=== PATIENT | female | born 1940 | race Caucasian/White ===

== ENCOUNTER 2021-06-06 12:54 | Inpatient (IN) | payer OTHER ==
[~2021-06-06] VITALS: Ht 160 cm; Wt 101.9 kg
[2021-06-06 14:07] LABS: Basophils # (auto) 0.1 10 ^3/uL (0-0.2); Basophils % (auto) 0.6 % (0.0-2.0); Eosinophils # (auto) 0 10 ^3/uL (0-0.8); Hemoglobin 14.3 g/dL (12.2-16.2); Mean Corpuscular Hemoglobin 27.9 pg (28.0-32.0); Mean Corpuscular Hgb Conc. 32.5 g/dL (32.0-36.0); Mean Corpuscular Volume 85.6 fL (80.0-100.0); Monocytes # (auto) 1.2 10 ^3/uL (0-1.3); Monocytes % (auto) 13.2 % (0.0-12.0); Neutrophils # (auto) 6.7 10 ^3/uL (1.6-8.6); Neutrophils % (auto) 75.2 % (37.0-80.0); Nucleated Red Blood Cells % 0.1 %; Red Blood Cells 5.13 10^6/uL (4.0-5.20); Red Cell Distribution Width 14.6 % (11.8-14.3); White Blood Cell 8.9 10^3/uL (4.4-10.8)
[2021-06-06 14:40] LABS: Albumin 2.9 g/dL (3.4-5.0); Calcium 8.5 mg/dL (8.5-10.1); Magnesium 2.5 mg/dL (1.6-2.6); Potassium 3.3 mmol/L (3.5-5.1)
[2021-06-06 14:46] LABS: BUN/Creatinine Ratio 16.4; Total Protein 7.3 g/dL (6.4-8.2)
[2021-06-06] MEDS ORDERED: FUROSEMIDE 40 MG/4 ML VIAL IV ONE (16:45)
[2021-06-06] MEDS ORDERED: POTASSIUM CHL 20 Meq TABLET PO ONE (17:00)
[2021-06-06] MEDS ORDERED: methylPREDNISolone SOD SUCC 125 MG/2 ML VL IV ONE (17:00)
[2021-06-06] MEDS ORDERED: ACETAMINOPHEN 325 MG TAB PO PRN (17:15)
[2021-06-06] MEDS ORDERED: NITROGLYCERIN 0.4 MG SL TAB SL PRN (17:15)
[2021-06-06] MEDS ORDERED: MORPHINE SULFATE INJECTION 2 MG/ML SYRG IV PRN (17:15)
[2021-06-06 17:24] LABS: Urine Bacteria FEW /hpf (None Seen); Urine Blood TRACE /uL (Negative); Urine Specific Gravity 1.008 (1.001-1.035); Urine WBC 2 /hpf (0 - 5)
[2021-06-06] MEDS: CHOLECALCIFEROL (VITD3) 2,000 UNIT CAP/TAB PO SCH (18:05)
[2021-06-06] MEDS: DexAMETHasone SOD PHOS 10MG/1ML VIAL INJ IV SCH (18:06)
[2021-06-06] MEDS: MORPHINE SULFATE 4 MG/ML SYR/VIAL IV PRN ×2 (18:42→22:32)
[2021-06-06] MEDS: ONDANSETRON HCL 4 MG/2 ML VIAL IV PRN ×2 (18:42→22:32)
[2021-06-06] MEDS: ASCORBIC ACID 500 MG TAB PO SCH (20:44)
[2021-06-06] MEDS: ENOXAPARIN SOD 40 MG/0.4 ML SYRINGE SC SCH (20:44)
[2021-06-06] MEDS: HYDROcodone-ACET 5/325MG TAB PO PRN (20:45)
[2021-06-06] MEDS ORDERED: dilTIAZem 25 MG/5 ML VIAL IV ONE (22:45)
[2021-06-06 23:35] VITALS: BP 130/92
[2021-06-07 01:00] VITALS: BP 130/92
[2021-06-07] MEDS: HYDROcodone-ACET 5/325MG TAB PO PRN ×3 (03:36→21:49)
[2021-06-07 05:00] VITALS: BP 67/108
[2021-06-07 05:57] LABS: Basophils # (auto) 0 10 ^3/uL (0-0.2); Basophils % (auto) 0.3 % (0.0-2.0); Eosinophils # (auto) 0 10 ^3/uL (0-0.8); Hematocrit 42.4 % (36.0-46.0); Hemoglobin 13.9 g/dL (12.2-16.2); Lymphocytes # (auto) 0.6 10 ^3/uL (0.4-5.4); Lymphocytes % (auto) 8.6 % (10.0-50.0); Mean Corpuscular Hemoglobin 28.2 pg (28.0-32.0); Mean Corpuscular Hgb Conc. 32.8 g/dL (32.0-36.0); Mean Corpuscular Volume 85.9 fL (80.0-100.0); Monocytes # (auto) 0.3 10 ^3/uL (0-1.3); Monocytes % (auto) 3.9 % (0.0-12.0); Neutrophils # (auto) 6.2 10 ^3/uL (1.6-8.6); Neutrophils % (auto) 87.2 % (37.0-80.0); Nucleated Red Blood Cells % 0.1 %; Red Blood Cells 4.94 10^6/uL (4.0-5.20); Red Cell Distribution Width 14.6 % (11.8-14.3); White Blood Cell 7.1 10^3/uL (4.4-10.8)
[2021-06-07 06:00] VITALS: BP 128/91
[2021-06-07 06:06] LABS: Albumin 2.8 g/dL (3.4-5.0); BUN/Creatinine Ratio 22.1; Bilirubin, Total 0.7 mg/dL (0.2-1.0); Total Protein 6.7 g/dL (6.4-8.2)
[2021-06-07] MEDS: MULTIPLE VITAMIN TAB PO SCH (09:37)
[2021-06-07] MEDS: DexAMETHasone SOD PHOS 10MG/1ML VIAL INJ IV SCH (09:37)
[2021-06-07] MEDS: ZINC SULFATE 220mg CAP or TAB PO SCH (09:37)
[2021-06-07] MEDS: ENOXAPARIN SOD 40 MG/0.4 ML SYRINGE SC SCH (09:37)
[2021-06-07] MEDS: ASCORBIC ACID 500 MG TAB PO SCH ×2 (09:38→21:49)
[2021-06-07] MEDS: CHOLECALCIFEROL (VITD3) 2,000 UNIT CAP/TAB PO SCH (09:38)
[2021-06-07] MEDS ORDERED: AMLO-489 PO (10:00)
[2021-06-07] MEDS ORDERED: LISI-716 PO (10:00)
[2021-06-07] MEDS ORDERED: FURO40TA4 PO (10:00)
[2021-06-07] MEDS ORDERED: APIX5TAB PO (10:00)
[2021-06-07] MEDS ORDERED: HYDR-4798 (10:00)
[2021-06-07] MEDS ORDERED: FLUT50SP NAS (10:00)
[2021-06-07] MEDS ORDERED: ATEN100T PO (10:00)
[2021-06-07] MEDS ORDERED: ERGO1CAP12 PO (10:00)
[2021-06-07] MEDS: MORPHINE SULFATE 4 MG/ML SYR/VIAL IV PRN ×2 (10:08→19:05)
[2021-06-07] MEDS ORDERED: REMDESIVIR PER PHARMACY 0 ML IV SCH (16:30)
[2021-06-07 17:00] VITALS: BP 155/89
[2021-06-07] MEDS ORDERED: IOHEXOL 350 MG/ML 100ML IJ ONE (17:27)
[2021-06-07] MEDS ORDERED: REMDESIVIR 200 MG in NS 210ml LOADING DOSE ADULT IV ONE (18:00)
[2021-06-07] MEDS: APIXABAN 5 MG TAB PO SCH (21:49)
[2021-06-07] MEDS: LISINOPRIL 10 MG TAB PO SCH (21:50)
[2021-06-07] MEDS: BUDESONIDE (INHALATION) 180 MCG IH IN SCH (22:00)
[2021-06-07 22:25] VITALS: BP 127/82
[2021-06-08 05:25] VITALS: BP 158/84
[2021-06-08 06:44] LABS: Albumin 2.5 g/dL (3.4-5.0); Calcium 8.3 mg/dL (8.5-10.1)
[2021-06-08 06:47] LABS: BUN/Creatinine Ratio 29.7; Bilirubin, Total 0.5 mg/dL (0.2-1.0); Total Protein 6.4 g/dL (6.4-8.2)
[2021-06-08] MEDS: BUDESONIDE (INHALATION) 180 MCG IH IN SCH ×2 (07:56→23:15)
[2021-06-08 09:00] VITALS: BP 130/109
[2021-06-08] MEDS: ZINC SULFATE 220mg CAP or TAB PO SCH (10:22)
[2021-06-08] MEDS: ATENOLOL 50 MG TAB PO SCH (10:22)
[2021-06-08] MEDS: ASCORBIC ACID 500 MG TAB PO SCH ×2 (10:22→22:19)
[2021-06-08] MEDS: LISINOPRIL 10 MG TAB PO SCH ×2 (10:22→22:21)
[2021-06-08] MEDS: APIXABAN 5 MG TAB PO SCH ×2 (10:23→22:17)
[2021-06-08] MEDS: amLODIPine BESYLATE 5 MG TAB PO SCH (10:23)
[2021-06-08] MEDS: MULTIPLE VITAMIN TAB PO SCH (10:23)
[2021-06-08] MEDS: CHOLECALCIFEROL (VITD3) 2,000 UNIT CAP/TAB PO SCH (10:23)
[2021-06-08] MEDS: DexAMETHasone SOD PHOS 10MG/1ML VIAL INJ IV SCH (10:27)
[2021-06-08] MEDS: MORPHINE SULFATE 4 MG/ML SYR/VIAL IV PRN (10:46)
[2021-06-08] MEDS: ONDANSETRON HCL 4 MG/2 ML VIAL IV PRN (10:47)
[2021-06-08 12:53] VITALS: BP 122/71
[2021-06-08] MEDS: REMDESIVIR 100mg 100 MG in SODIUM CHL 0.9% 230 ML IV SCH (15:13)
[2021-06-08 17:02] VITALS: BP 153/82
[2021-06-08] MEDS ORDERED: DEXTROSE (50%) 50ML SYRG IV PRN ×2 (19:00→19:15)
[2021-06-08] MEDS ORDERED: InsuLIN REG 1unit/0.01ml Soln (100units/ml) SC ONE (19:15)
[2021-06-08 22:00] VITALS: BP 147/79
[2021-06-08] MEDS ORDERED: ACCU-CHEK COMFORT CURVE STRIP VI SCH (22:00)
[2021-06-08] MEDS ORDERED: InsuLIN REG 1unit/0.01ml Soln (100units/ml) SC SCH (22:00)
[2021-06-08] MEDS: InsuLIN REG 1unit/0.01ml Soln (100units/ml) SC SCH (22:16)
[2021-06-08] MEDS: ACCU-CHEK COMFORT CURVE STRIP VI SCH (22:17)
[2021-06-08] MEDS: HYDROcodone-ACET 5/325MG TAB PO PRN (22:27)
[2021-06-09 05:00] VITALS: BP 161/91
[2021-06-09] MEDS: HYDROcodone-ACET 5/325MG TAB PO PRN ×3 (05:19→21:01)
[2021-06-09] MEDS: ACCU-CHEK COMFORT CURVE STRIP VI SCH ×4 (06:33→21:39)
[2021-06-09] MEDS: InsuLIN REG 1unit/0.01ml Soln (100units/ml) SC SCH ×4 (06:36→21:47)
[2021-06-09 07:17] LABS: Calcium 8.3 mg/dL (8.5-10.1); Potassium 3.8 mmol/L (3.5-5.1)
[2021-06-09 07:24] LABS: Albumin 2.7 g/dL (3.4-5.0); BUN/Creatinine Ratio 26.3; Bilirubin, Total 0.4 mg/dL (0.2-1.0); Total Protein 6.5 g/dL (6.4-8.2)
[2021-06-09 08:00] VITALS: BP 158/86
[2021-06-09] MEDS: BUDESONIDE (INHALATION) 180 MCG IH IN SCH ×2 (08:40→20:08)
[2021-06-09 09:00] VITALS: BP 154/80
[2021-06-09] MEDS: DexAMETHasone SOD PHOS 10MG/1ML VIAL INJ IV SCH (09:33)
[2021-06-09] MEDS: ZINC SULFATE 220mg CAP or TAB PO SCH (09:34)
[2021-06-09] MEDS: APIXABAN 5 MG TAB PO SCH ×2 (09:34→21:37)
[2021-06-09] MEDS: amLODIPine BESYLATE 5 MG TAB PO SCH (09:35)
[2021-06-09] MEDS: MULTIPLE VITAMIN TAB PO SCH (09:35)
[2021-06-09] MEDS: CHOLECALCIFEROL (VITD3) 2,000 UNIT CAP/TAB PO SCH (09:36)
[2021-06-09] MEDS: ATENOLOL 50 MG TAB PO SCH (09:36)
[2021-06-09] MEDS: ASCORBIC ACID 500 MG TAB PO SCH ×2 (09:36→21:38)
[2021-06-09] MEDS: LISINOPRIL 10 MG TAB PO SCH ×2 (09:36→21:39)
[2021-06-09 12:54] VITALS: BP 133/113
[2021-06-09] MEDS: REMDESIVIR 100mg 100 MG in SODIUM CHL 0.9% 230 ML IV SCH (14:53)
[2021-06-09 17:10] VITALS: BP 149/96
[2021-06-09 22:00] VITALS: BP 138/66
[2021-06-09] MEDS ORDERED: INSULIN LANTUS (GLARGINE) 1 /0.01ml (100units/ml) SC SCH (22:00)
[2021-06-10] MEDS: HYDROcodone-ACET 5/325MG TAB PO PRN ×4 (01:14→21:37)
[2021-06-10 05:15] VITALS: BP 145/100
[2021-06-10] MEDS: ACCU-CHEK COMFORT CURVE STRIP VI SCH ×4 (06:23→21:38)
[2021-06-10] MEDS: InsuLIN REG 1unit/0.01ml Soln (100units/ml) SC SCH ×4 (06:26→21:38)
[2021-06-10] MEDS: BUDESONIDE (INHALATION) 180 MCG IH IN SCH ×2 (06:26→22:30)
[2021-06-10 08:00] VITALS: BP 161/90
[2021-06-10 08:22] LABS: Potassium 3.4 mmol/L (3.5-5.1)
[2021-06-10 08:31] LABS: Albumin 2.7 g/dL (3.4-5.0); Bilirubin, Total 0.7 mg/dL (0.2-1.0); Calcium 8.2 mg/dL (8.5-10.1); Total Protein 6.7 g/dL (6.4-8.2)
[2021-06-10] MEDS: ZINC SULFATE 220mg CAP or TAB PO SCH (09:12)
[2021-06-10] MEDS: DexAMETHasone SOD PHOS 10MG/1ML VIAL INJ IV SCH (09:12)
[2021-06-10] MEDS: amLODIPine BESYLATE 5 MG TAB PO SCH (09:13)
[2021-06-10] MEDS: ATENOLOL 50 MG TAB PO SCH (09:14)
[2021-06-10] MEDS: MULTIPLE VITAMIN TAB PO SCH (09:14)
[2021-06-10] MEDS: LISINOPRIL 10 MG TAB PO SCH ×2 (09:15→21:35)
[2021-06-10] MEDS: ASCORBIC ACID 500 MG TAB PO SCH ×2 (09:16→21:37)
[2021-06-10] MEDS: CHOLECALCIFEROL (VITD3) 2,000 UNIT CAP/TAB PO SCH (09:17)
[2021-06-10] MEDS: APIXABAN 5 MG TAB PO SCH ×2 (11:50→21:34)
[2021-06-10 12:00] VITALS: BP 138/91
[2021-06-10] MEDS: REMDESIVIR 100mg 100 MG in SODIUM CHL 0.9% 230 ML IV SCH (14:17)
[2021-06-10 16:00] VITALS: BP 139/78
[2021-06-10 20:00] VITALS: BP 144/80
[2021-06-10] MEDS: INSULIN LANTUS (GLARGINE) 1 /0.01ml (100units/ml) SC SCH (21:59)
[2021-06-10 22:00] VITALS: BP 144/80
[2021-06-11] MEDS: HYDROcodone-ACET 5/325MG TAB PO PRN ×3 (01:40→12:02)
[2021-06-11 05:00] VITALS: BP 152/94
[2021-06-11] MEDS: InsuLIN REG 1unit/0.01ml Soln (100units/ml) SC SCH ×4 (06:18→21:40)
[2021-06-11] MEDS: ACCU-CHEK COMFORT CURVE STRIP VI SCH ×4 (06:18→21:41)
[2021-06-11 07:25] LABS: Basophils # (auto) 0 10 ^3/uL (0-0.2); Basophils % (auto) 0.1 % (0.0-2.0); Eosinophils # (auto) 0 10 ^3/uL (0-0.8); Eosinophils % (auto) 0.1 % (0.0-7.0); Hematocrit 47.1 % (36.0-46.0); Hemoglobin 15.8 g/dL (12.2-16.2); Lymphocytes # (auto) 0.8 10 ^3/uL (0.4-5.4); Lymphocytes % (auto) 5.3 % (10.0-50.0); Mean Corpuscular Hemoglobin 28.3 pg (28.0-32.0); Mean Corpuscular Hgb Conc. 33.6 g/dL (32.0-36.0); Mean Corpuscular Volume 84.2 fL (80.0-100.0); Monocytes # (auto) 0.8 10 ^3/uL (0-1.3); Monocytes % (auto) 5.5 % (0.0-12.0); Neutrophils # (auto) 12.5 10 ^3/uL (1.6-8.6); Nucleated Red Blood Cells % 0.1 %; Red Blood Cells 5.59 10^6/uL (4.0-5.20); Red Cell Distribution Width 14.5 % (11.8-14.3); White Blood Cell 14.1 10^3/uL (4.4-10.8)
[2021-06-11 07:29] LABS: Potassium 3.4 mmol/L (3.5-5.1)
[2021-06-11 07:39] LABS: Albumin 2.7 g/dL (3.4-5.0); BUN/Creatinine Ratio 22.6; Calcium 8.2 mg/dL (8.5-10.1); Magnesium 2.8 mg/dL (1.6-2.6); Total Protein 6.6 g/dL (6.4-8.2)
[2021-06-11 08:00] VITALS: BP 159/99
[2021-06-11] MEDS: LISINOPRIL 10 MG TAB PO SCH ×2 (10:00→21:38)
[2021-06-11] MEDS: ASCORBIC ACID 500 MG TAB PO SCH ×2 (10:00→21:38)
[2021-06-11] MEDS: amLODIPine BESYLATE 5 MG TAB PO SCH (10:00)
[2021-06-11] MEDS: MULTIPLE VITAMIN TAB PO SCH (10:00)
[2021-06-11] MEDS: CHOLECALCIFEROL (VITD3) 2,000 UNIT CAP/TAB PO SCH (10:00)
[2021-06-11] MEDS: ATENOLOL 50 MG TAB PO SCH (10:00)
[2021-06-11] MEDS: APIXABAN 5 MG TAB PO SCH ×2 (10:00→21:37)
[2021-06-11] MEDS: ZINC SULFATE 220mg CAP or TAB PO SCH (11:51)
[2021-06-11] MEDS: DexAMETHasone SOD PHOS 10MG/1ML VIAL INJ IV SCH (11:51)
[2021-06-11 12:00] VITALS: BP 141/83
[2021-06-11] MEDS: REMDESIVIR 100mg 100 MG in SODIUM CHL 0.9% 230 ML IV SCH (16:15)
[2021-06-11 17:00] VITALS: BP 148/75
[2021-06-11 20:15] VITALS: BP 158/93
[2021-06-11] MEDS: INSULIN LANTUS (GLARGINE) 1 /0.01ml (100units/ml) SC SCH (21:40)
[2021-06-11] MEDS: BUDESONIDE (INHALATION) 180 MCG IH IN SCH (21:42)
[2021-06-11 22:00] VITALS: BP 158/93
[2021-06-12] VITALS (7 sets, daily range): BP systolic 149–161; BP diastolic 81–103
[2021-06-12] MEDS: HYDROcodone-ACET 5/325MG TAB PO PRN ×3 (05:24→23:53)
[2021-06-12] MEDS: BUDESONIDE (INHALATION) 180 MCG IH IN SCH ×2 (06:35→22:14)
[2021-06-12] MEDS: ACCU-CHEK COMFORT CURVE STRIP VI SCH ×4 (06:36→21:57)
[2021-06-12] MEDS: InsuLIN REG 1unit/0.01ml Soln (100units/ml) SC SCH ×4 (06:37→22:12)
[2021-06-12] MEDS: ZINC SULFATE 220mg CAP or TAB PO SCH (09:19)
[2021-06-12] MEDS: DexAMETHasone SOD PHOS 10MG/1ML VIAL INJ IV SCH (09:19)
[2021-06-12] MEDS: MULTIPLE VITAMIN TAB PO SCH (09:19)
[2021-06-12] MEDS: APIXABAN 5 MG TAB PO SCH ×2 (09:19→21:56)
[2021-06-12] MEDS: ASCORBIC ACID 500 MG TAB PO SCH ×2 (09:20→21:56)
[2021-06-12] MEDS: ATENOLOL 50 MG TAB PO SCH (09:20)
[2021-06-12] MEDS: amLODIPine BESYLATE 5 MG TAB PO SCH (09:20)
[2021-06-12] MEDS: CHOLECALCIFEROL (VITD3) 2,000 UNIT CAP/TAB PO SCH (09:21)
[2021-06-12] MEDS: LISINOPRIL 10 MG TAB PO SCH ×2 (09:21→21:57)
[2021-06-12] MEDS: INSULIN LANTUS (GLARGINE) 1 /0.01ml (100units/ml) SC SCH (22:13)
[2021-06-13 05:00] VITALS: BP 156/109
[2021-06-13] MEDS: HYDROcodone-ACET 5/325MG TAB PO PRN ×3 (05:41→23:32)
[2021-06-13] MEDS: BUDESONIDE (INHALATION) 180 MCG IH IN SCH ×2 (05:57→20:15)
[2021-06-13] MEDS: ACCU-CHEK COMFORT CURVE STRIP VI SCH ×4 (06:46→21:37)
[2021-06-13] MEDS: InsuLIN REG 1unit/0.01ml Soln (100units/ml) SC SCH ×4 (06:57→22:34)
[2021-06-13 09:00] VITALS: BP 132/101
[2021-06-13] MEDS: CHOLECALCIFEROL (VITD3) 2,000 UNIT CAP/TAB PO SCH (10:30)
[2021-06-13] MEDS: ZINC SULFATE 220mg CAP or TAB PO SCH (10:30)
[2021-06-13] MEDS: DexAMETHasone SOD PHOS 10MG/1ML VIAL INJ IV SCH (10:31)
[2021-06-13] MEDS: ASCORBIC ACID 500 MG TAB PO SCH ×2 (10:31→21:51)
[2021-06-13] MEDS: APIXABAN 5 MG TAB PO SCH ×2 (10:31→21:51)
[2021-06-13] MEDS: MULTIPLE VITAMIN TAB PO SCH (10:31)
[2021-06-13] MEDS: amLODIPine BESYLATE 5 MG TAB PO SCH (10:44)
[2021-06-13] MEDS: LISINOPRIL 10 MG TAB PO SCH ×2 (10:44→21:52)
[2021-06-13] MEDS: ATENOLOL 50 MG TAB PO SCH (10:45)
[2021-06-13 13:00] VITALS: BP 151/85
[2021-06-13 17:00] VITALS: BP 149/82
[2021-06-13 22:00] VITALS: BP 147/101
[2021-06-13] MEDS: INSULIN LANTUS (GLARGINE) 1 /0.01ml (100units/ml) SC SCH (22:35)
[2021-06-14 05:00] VITALS: BP 158/108
[2021-06-14] MEDS: BUDESONIDE (INHALATION) 180 MCG IH IN SCH ×2 (06:11→22:00)
[2021-06-14] MEDS: ACCU-CHEK COMFORT CURVE STRIP VI SCH ×4 (06:30→21:26)
[2021-06-14] MEDS: InsuLIN REG 1unit/0.01ml Soln (100units/ml) SC SCH ×4 (06:49→21:28)
[2021-06-14 09:00] VITALS: BP 150/93
[2021-06-14] MEDS: DexAMETHasone SOD PHOS 10MG/1ML VIAL INJ IV SCH (09:03)
[2021-06-14] MEDS: MULTIPLE VITAMIN TAB PO SCH (09:04)
[2021-06-14] MEDS: LISINOPRIL 10 MG TAB PO SCH ×2 (09:04→22:11)
[2021-06-14] MEDS: APIXABAN 5 MG TAB PO SCH ×2 (09:04→21:26)
[2021-06-14] MEDS: ASCORBIC ACID 500 MG TAB PO SCH ×2 (09:04→21:26)
[2021-06-14] MEDS: amLODIPine BESYLATE 5 MG TAB PO SCH (09:05)
[2021-06-14] MEDS: ZINC SULFATE 220mg CAP or TAB PO SCH (09:05)
[2021-06-14] MEDS: CHOLECALCIFEROL (VITD3) 2,000 UNIT CAP/TAB PO SCH (09:05)
[2021-06-14] MEDS: ATENOLOL 50 MG TAB PO SCH (09:05)
[2021-06-14 13:00] VITALS: BP 131/85
[2021-06-14] MEDS: HYDROcodone-ACET 5/325MG TAB PO PRN ×2 (16:58→21:30)
[2021-06-14 17:00] VITALS: BP 139/74
[2021-06-14] MEDS: INSULIN LANTUS (GLARGINE) 1 /0.01ml (100units/ml) SC SCH (21:29)
[2021-06-14 22:00] VITALS: BP 155/84
[2021-06-15 05:00] VITALS: BP 148/81
[2021-06-15] MEDS: ACCU-CHEK COMFORT CURVE STRIP VI SCH ×4 (06:01→21:38)
[2021-06-15] MEDS: InsuLIN REG 1unit/0.01ml Soln (100units/ml) SC SCH ×4 (06:03→21:39)
[2021-06-15] MEDS: BUDESONIDE (INHALATION) 180 MCG IH IN SCH ×2 (06:12→19:32)
[2021-06-15 08:30] VITALS: BP 160/86
[2021-06-15] MEDS: ATENOLOL 50 MG TAB PO SCH (09:45)
[2021-06-15] MEDS: LISINOPRIL 10 MG TAB PO SCH ×2 (09:45→21:51)
[2021-06-15] MEDS: DexAMETHasone SOD PHOS 10MG/1ML VIAL INJ IV SCH (09:45)
[2021-06-15] MEDS: ASCORBIC ACID 500 MG TAB PO SCH ×2 (09:45→21:50)
[2021-06-15] MEDS: ZINC SULFATE 220mg CAP or TAB PO SCH (09:45)
[2021-06-15] MEDS: MULTIPLE VITAMIN TAB PO SCH (09:46)
[2021-06-15] MEDS: APIXABAN 5 MG TAB PO SCH ×2 (09:46→21:50)
[2021-06-15] MEDS: amLODIPine BESYLATE 5 MG TAB PO SCH (09:46)
[2021-06-15] MEDS: CHOLECALCIFEROL (VITD3) 2,000 UNIT CAP/TAB PO SCH (09:46)
[2021-06-15 13:00] VITALS: BP 134/90
[2021-06-15 16:46] VITALS: BP 129/93
[2021-06-15 17:33] VITALS: BP 129/93
[2021-06-15] MEDS: INSULIN LANTUS (GLARGINE) 1 /0.01ml (100units/ml) SC SCH (21:50)
[2021-06-15 22:00] VITALS: BP 141/98
[2021-06-15] MEDS: HYDROcodone-ACET 5/325MG TAB PO PRN (22:08)
[2021-06-16 04:47] VITALS: BP 128/69
[2021-06-16] MEDS: HYDROcodone-ACET 5/325MG TAB PO PRN (06:00)
[2021-06-16] MEDS: ACCU-CHEK COMFORT CURVE STRIP VI SCH ×4 (06:00→22:46)
[2021-06-16] MEDS: InsuLIN REG 1unit/0.01ml Soln (100units/ml) SC SCH ×4 (06:01→23:26)
[2021-06-16 09:00] VITALS: BP 155/90
[2021-06-16] MEDS: BUDESONIDE (INHALATION) 180 MCG IH IN SCH ×2 (09:10→22:32)
[2021-06-16] MEDS: MULTIPLE VITAMIN TAB PO SCH (10:15)
[2021-06-16] MEDS: ZINC SULFATE 220mg CAP or TAB PO SCH (10:16)
[2021-06-16] MEDS: APIXABAN 5 MG TAB PO SCH ×2 (10:16→22:47)
[2021-06-16] MEDS: ATENOLOL 50 MG TAB PO SCH (10:16)
[2021-06-16] MEDS: amLODIPine BESYLATE 5 MG TAB PO SCH (10:16)
[2021-06-16] MEDS: DexAMETHasone SOD PHOS 10MG/1ML VIAL INJ IV SCH (10:17)
[2021-06-16] MEDS: ASCORBIC ACID 500 MG TAB PO SCH ×2 (10:19→22:47)
[2021-06-16] MEDS: CHOLECALCIFEROL (VITD3) 2,000 UNIT CAP/TAB PO SCH (10:19)
[2021-06-16] MEDS: LISINOPRIL 10 MG TAB PO SCH ×2 (10:20→22:47)
[2021-06-16 13:00] VITALS: BP 162/95
[2021-06-16] MEDS ORDERED: DOCUSATE SOD 100 MG CAP PO PRN (15:45)
[2021-06-16 17:00] VITALS: BP 154/99
[2021-06-16 19:27] LABS: Basophils # (auto) 0.1 10 ^3/uL (0-0.2); Basophils % (auto) 0.3 % (0.0-2.0); Eosinophils # (auto) 0 10 ^3/uL (0-0.8); Eosinophils % (auto) 0.1 % (0.0-7.0); Hematocrit 50.2 % (36.0-46.0); Hemoglobin 16.3 g/dL (12.2-16.2); Lymphocytes # (auto) 0.4 10 ^3/uL (0.4-5.4); Lymphocytes % (auto) 2.3 % (10.0-50.0); Mean Corpuscular Hemoglobin 27.9 pg (28.0-32.0); Mean Corpuscular Hgb Conc. 32.6 g/dL (32.0-36.0); Mean Corpuscular Volume 85.7 fL (80.0-100.0); Monocytes # (auto) 0.5 10 ^3/uL (0-1.3); Monocytes % (auto) 3.1 % (0.0-12.0); Neutrophils # (auto) 16.1 10 ^3/uL (1.6-8.6); Neutrophils % (auto) 94.2 % (37.0-80.0); Red Blood Cells 5.86 10^6/uL (4.0-5.20); Red Cell Distribution Width 14.6 % (11.8-14.3); White Blood Cell 17.1 10^3/uL (4.4-10.8)
[2021-06-16 19:38] LABS: Anion Gap 9 (5-15); BUN/Creatinine Ratio 36.2; Blood Urea Nitrogen 21 mg/dL (7-18); Calcium 8.4 mg/dL (8.5-10.1); Carbon Dioxide 29 mmol/L (21-32); Chloride 101 mmol/L (98-107); GFR African American 129 mL/min; GFR Non-African American 107 mL/min; Glucose 268 mg/dL (74-106); Sodium 139 mmol/L (136-145)
[2021-06-16 22:00] VITALS: BP 153/80
[2021-06-16] MEDS ORDERED: DOCUSATE SOD 100 MG CAP PO SCH (22:00)
[2021-06-16] MEDS: LACTULOSE 20Gm/30ML SOLN PO SCH (22:47)
[2021-06-16] MEDS: INSULIN LANTUS (GLARGINE) 1 /0.01ml (100units/ml) SC SCH (23:27)
[2021-06-17 05:00] VITALS: BP 162/99
[2021-06-17] MEDS: LACTULOSE 20Gm/30ML SOLN PO SCH (06:12)
[2021-06-17] MEDS: ACCU-CHEK COMFORT CURVE STRIP VI SCH (06:12)
[2021-06-17] MEDS: InsuLIN REG 1unit/0.01ml Soln (100units/ml) SC SCH (06:21)
[2021-06-17] MEDS: BUDESONIDE (INHALATION) 180 MCG IH IN SCH (06:27)
[2021-06-17 08:30] VITALS: BP 153/83
== END 2021-06-17 08:30 | DRG 177 ==
LOC: EDUNIT# 12:54 → ER 12:54 → EDBD 12:54 → TELE 17:12 → TELE-EAST 23:31
PROVIDERS: ADMIT Internal Medicine; ATTEND Internal Medicine
PROC: XW033E5 Introduction of Remdesivir Anti-infective into Peripheral Vein, Percutaneous Approach, New Technology Group 5 (ICD-10-PCS; principal; 2021-06-07)
DX: U07.1 COVID-19 (principal); J96.01 Acute respiratory failure with hypoxia; J12.82 Pneumonia due to coronavirus disease 2019; I50.23 Acute on chronic systolic (congestive) heart failure; I21.A1 Myocardial infarction type 2; I48.20 Chronic atrial fibrillation, unspecified; I82.431 Acute embolism and thrombosis of right popliteal vein; I27.21 Secondary pulmonary arterial hypertension; I25.10 Atherosclerotic heart disease of native coronary artery without angina pectoris; I35.0 Nonrheumatic aortic (valve) stenosis; I48.0 Paroxysmal atrial fibrillation; I11.0 Hypertensive heart disease with heart failure; M19.90 Unspecified osteoarthritis, unspecified site; G89.29 Other chronic pain; R00.0 Tachycardia, unspecified; E66.01 Morbid (severe) obesity due to excess calories; E87.6 Hypokalemia; E88.09 Other disorders of plasma-protein metabolism, not elsewhere classified; Z68.39 Body mass index [BMI] 39.0-39.9, adult; Z95.1 Presence of aortocoronary bypass graft; Z90.49 Acquired absence of other specified parts of digestive tract; Z79.4 Long term (current) use of insulin; E11.51 Type 2 diabetes mellitus with diabetic peripheral angiopathy without gangrene
CPT/HCPCS: 36415; 71045; 71275; 72100; 73502; 80048; 80053; 81001; 82962; 83036; 83735; 84484; 85025; 85379; 87426; 93005; 93306; 93970; 94640; 96374; 96375; 97110; 97116; 97163; 97530; 99291; G0378; J1100; J1815; J2405

== ENCOUNTER 2021-08-06 07:17 | Inpatient (IN) | payer OTHER, MEDICAID ==
[~2021-08-06] VITALS: Ht 157.5 cm; Wt 105.8 kg
[~2021-08-06 07:17] MED LIST: AMLO-489 PO; APIX5TAB PO; ATEN100T PO; ERGO1CAP12 PO; FLUT50SP NAS; FURO40TA4 PO; HYDR-4798; LISI-716 PO
[2021-08-06 08:37] LABS: Basophils # (auto) 0.1 10 ^3/uL (0-0.2); Basophils % (auto) 0.9 % (0.0-2.0); Eosinophils # (auto) 0.1 10 ^3/uL (0-0.8); Eosinophils % (auto) 1.1 % (0.0-7.0); Hematocrit 41.1 % (36.0-46.0); Hemoglobin 13.6 g/dL (12.2-16.2); Lymphocytes # (auto) 1.2 10 ^3/uL (0.4-5.4); Lymphocytes % (auto) 10.3 % (10.0-50.0); Mean Corpuscular Hemoglobin 28.9 pg (28.0-32.0); Mean Corpuscular Hgb Conc. 33.1 g/dL (32.0-36.0); Mean Corpuscular Volume 87.5 fL (80.0-100.0); Monocytes % (auto) 8.4 % (0.0-12.0); Neutrophils # (auto) 9.2 10 ^3/uL (1.6-8.6); Neutrophils % (auto) 79.3 % (37.0-80.0); Nucleated Red Blood Cells % 0.3 %; White Blood Cell 11.6 10^3/uL (4.4-10.8)
[2021-08-06 09:21] LABS: BUN/Creatinine Ratio 10.7; Bilirubin, Total 1.1 mg/dL (0.2-1.0); Calcium 8.9 mg/dL (8.5-10.1)
[2021-08-06 09:22] LABS: Albumin 2.9 g/dL (3.4-5.0)
[2021-08-06 10:28] LABS: Urine Bacteria NONE SEEN /hpf (None Seen); Urine Blood Negative /uL (Negative); Urine Hyaline Cast FEW /lpf (0 - 2); Urine Mucus FEW (None Seen); Urine Specific Gravity 1.008 (1.001-1.035); Urine WBC 1 /hpf (0 - 5)
[2021-08-06] MEDS ORDERED: CLINDAMYCIN 600MG IV 50 ML IV ONE (10:30)
[2021-08-06] MEDS: ONDANSETRON HCL 4 MG/2 ML VIAL IV ONE ×2 (10:30→10:36)
[2021-08-06] MEDS: MORPHINE SULFATE 4 MG/ML SYR/VIAL IV ONE (10:30)
[2021-08-06] MEDS: cefTRIAXone 1GM/50ML D5W 50 ML IV ONE ×4 (10:59→12:18)
[2021-08-06] MEDS ORDERED: IBUPROFEN 800 MG TAB PO ONE (12:30)
[2021-08-06] MEDS ORDERED: ACETAMINOPHEN 325 MG TAB PO PRN (16:00)
[2021-08-06] MEDS ORDERED: MORPHINE SULFATE INJECTION 2 MG/ML SYRG IV PRN ×2 (16:00)
[2021-08-06] MEDS ORDERED: NITROGLYCERIN 0.4 MG SL TAB SL PRN (16:00)
[2021-08-06] MEDS: SODIUM CHLORIDE 0.9% 1,000 ML IV SCH (16:38)
[2021-08-06] MEDS ORDERED: NITR100C6 PO (18:03)
[2021-08-06] MEDS ORDERED: POTA1TAB61 PO (18:03)
[2021-08-06] MEDS ORDERED: INSU100I61 (18:03)
[2021-08-06 20:19] VITALS: BP 122/66
[2021-08-06 22:00] VITALS: BP 106/60
[2021-08-06] MEDS: HYDROcodone-ACET 5/325MG TAB PO PRN (22:55)
[2021-08-07 05:15] VITALS: BP 110/62
[2021-08-07 05:45] LABS: Basophils # (auto) 0.1 10 ^3/uL (0-0.2); Basophils % (auto) 0.7 % (0.0-2.0); Eosinophils # (auto) 0.2 10 ^3/uL (0-0.8); Eosinophils % (auto) 2.4 % (0.0-7.0); Hematocrit 37.1 % (36.0-46.0); Lymphocytes # (auto) 1.1 10 ^3/uL (0.4-5.4); Lymphocytes % (auto) 14.2 % (10.0-50.0); Mean Corpuscular Hemoglobin 28.2 pg (28.0-32.0); Mean Corpuscular Hgb Conc. 32.2 g/dL (32.0-36.0); Mean Corpuscular Volume 87.6 fL (80.0-100.0); Monocytes # (auto) 0.7 10 ^3/uL (0-1.3); Monocytes % (auto) 8.6 % (0.0-12.0); Neutrophils # (auto) 5.9 10 ^3/uL (1.6-8.6); Neutrophils % (auto) 74.1 % (37.0-80.0); Nucleated Red Blood Cells % 0.2 %; Red Blood Cells 4.24 10^6/uL (4.0-5.20)
[2021-08-07] MEDS ORDERED: CLINDAMYCIN 300MG IV 50 ML IV SCH (06:00)
[2021-08-07 06:12] LABS: Albumin 2.3 g/dL (3.4-5.0); BUN/Creatinine Ratio 15.6; Calcium 8.3 mg/dL (8.5-10.1)
[2021-08-07 06:16] LABS: Bilirubin, Total 0.7 mg/dL (0.2-1.0); Total Protein 5.5 g/dL (6.4-8.2)
[2021-08-07 06:40] LABS: Potassium 2.9 mmol/L (3.5-5.1)
[2021-08-07] MEDS: SODIUM CHLORIDE 0.9% 1,000 ML IV SCH (08:40)
[2021-08-07 09:00] VITALS: BP 133/81
[2021-08-07] MEDS: POTASSIUM CHL 10MEQ/50ML 50 ML IV SCH ×4 (09:27→17:34)
[2021-08-07] MEDS: amLODIPine BESYLATE 5 MG TAB PO SCH (09:28)
[2021-08-07] MEDS: APIXABAN 5 MG TAB PO SCH ×2 (09:28→22:24)
[2021-08-07] MEDS: ATENOLOL 50 MG TAB PO SCH (09:29)
[2021-08-07] MEDS: LISINOPRIL 20 MG TAB PO SCH (09:29)
[2021-08-07] MEDS: HYDROcodone-ACET 5/325MG TAB PO PRN ×3 (09:30→23:38)
[2021-08-07] MEDS: FUROSEMIDE 40 MG/4 ML VIAL IV SCH (10:00)
[2021-08-07] MEDS ORDERED: ENOXAPARIN SOD 40 MG/0.4 ML SYRINGE SC SCH (10:00)
[2021-08-07] MEDS ORDERED: ERGOCALCIFEROL 50,000 UNIT(1.25MG) CAP PO SCH (10:00)
[2021-08-07] MEDS ORDERED: POTASSIUM CHL 10MEQ/50ML 50 ML IV ONE (16:20)
[2021-08-07 17:00] VITALS: BP_SYST 114; BP_SYST 125; BP_DIAS 65; BP_DIAS 80
[2021-08-07 20:00] VITALS: BP 125/73
[2021-08-08] VITALS (7 sets, daily range): BP systolic 117–139; BP diastolic 63–92
[2021-08-08] MEDS: SODIUM CHLORIDE 0.9% 1,000 ML IV SCH ×2 (03:21→21:52)
[2021-08-08] MEDS: FUROSEMIDE 40 MG/4 ML VIAL IV SCH (09:40)
[2021-08-08] MEDS: APIXABAN 5 MG TAB PO SCH ×2 (09:40→21:52)
[2021-08-08] MEDS: amLODIPine BESYLATE 5 MG TAB PO SCH (09:41)
[2021-08-08] MEDS: ATENOLOL 50 MG TAB PO SCH (09:41)
[2021-08-08] MEDS: LISINOPRIL 20 MG TAB PO SCH (09:42)
[2021-08-08] MEDS: CLOTRIMAZOLE 1 % CREAM 15GM TOP SCH ×2 (10:00→21:53)
[2021-08-08] MEDS: HYDROcodone-ACET 5/325MG TAB PO PRN ×2 (12:36→21:53)
[2021-08-09] MEDS: HYDROcodone-ACET 5/325MG TAB PO PRN ×3 (02:31→20:10)
[2021-08-09 04:42] VITALS: BP 131/53
[2021-08-09 09:11] VITALS: BP 139/86
[2021-08-09] MEDS: FUROSEMIDE 40 MG/4 ML VIAL IV SCH (09:44)
[2021-08-09] MEDS: APIXABAN 5 MG TAB PO SCH ×2 (09:44→21:33)
[2021-08-09] MEDS: ATENOLOL 50 MG TAB PO SCH (09:45)
[2021-08-09] MEDS: LISINOPRIL 20 MG TAB PO SCH (09:45)
[2021-08-09] MEDS: amLODIPine BESYLATE 5 MG TAB PO SCH (09:45)
[2021-08-09] MEDS: CLOTRIMAZOLE 1 % CREAM 15GM TOP SCH ×2 (09:46→21:33)
[2021-08-09] MEDS: SODIUM CHLORIDE 0.9% 1,000 ML IV SCH (12:39)
[2021-08-09 12:51] VITALS: BP 135/78
[2021-08-09 17:00] VITALS: BP 127/77
[2021-08-09 21:50] VITALS: BP 121/83
[2021-08-10 04:42] VITALS: BP 142/86
[2021-08-10] MEDS: HYDROcodone-ACET 5/325MG TAB PO PRN ×3 (04:58→21:34)
[2021-08-10] MEDS: SODIUM CHLORIDE 0.9% 1,000 ML IV SCH ×2 (05:36→20:00)
[2021-08-10] MEDS ORDERED: PENICILLOYL POLYLYSINE 0.25 ML INJ SCRATCHTES ONE (07:45)
[2021-08-10] MEDS ORDERED: PENICILLOYL POLYLYSINE 0.25 ML INJ ID ONE ×2 (07:45)
[2021-08-10 09:00] VITALS: BP 116/71
[2021-08-10] MEDS: LISINOPRIL 20 MG TAB PO SCH (10:00)
[2021-08-10] MEDS: FUROSEMIDE 40 MG/4 ML VIAL IV SCH (11:10)
[2021-08-10] MEDS: APIXABAN 5 MG TAB PO SCH ×2 (11:10→21:35)
[2021-08-10] MEDS: amLODIPine BESYLATE 5 MG TAB PO SCH (11:11)
[2021-08-10] MEDS: CLOTRIMAZOLE 1 % CREAM 15GM TOP SCH ×2 (11:12→21:35)
[2021-08-10] MEDS: ATENOLOL 50 MG TAB PO SCH (11:12)
[2021-08-10 13:00] VITALS: BP 100/79
[2021-08-10] MEDS ORDERED: INSUINJ37 SC ×2 (14:27)
[2021-08-10] MEDS ORDERED: ATEN100T PO ×2 (14:27)
[2021-08-10] MEDS ORDERED: CHOL1TAB30 PO ×2 (14:27)
[2021-08-10] MEDS ORDERED: INSU100I49 SC ×2 (14:27)
[2021-08-10] MEDS ORDERED: SODIUM CHLOR 0.9% PF (SALINE LOCK) 10ML VIAL/SYR ID ONE (15:00)
[2021-08-10] MEDS ORDERED: PENICILLIN G POTASSIUM 1,000 UNITS in SODIUM CHL 0.9% 0.1 ML SCRATCHTES ONE (15:00)
[2021-08-10] MEDS ORDERED: SODIUM CHLOR 0.9% PF (SALINE LOCK) 10ML VIAL/SYR SCRATCHTES ONE (15:00)
[2021-08-10] MEDS ORDERED: HISTAMINE PHOS 1mg/ml 5ML SCRATCH TEST SCRATCHTES ONE (15:00)
[2021-08-10] MEDS ORDERED: PENICILLIN G POTASSIUM 1,000 UNITS in SODIUM CHL 0.9% 0.1 ML ID ONE (15:00)
[2021-08-10 17:24] VITALS: BP 128/66
[2021-08-10 20:15] LABS: Basophils # (auto) 0.1 10 ^3/uL (0-0.2); Basophils % (auto) 0.7 % (0.0-2.0); Eosinophils # (auto) 0.2 10 ^3/uL (0-0.8); Hematocrit 37.5 % (36.0-46.0); Hemoglobin 12.1 g/dL (12.2-16.2); Lymphocytes # (auto) 1.2 10 ^3/uL (0.4-5.4); Lymphocytes % (auto) 16.5 % (10.0-50.0); Mean Corpuscular Hemoglobin 28.7 pg (28.0-32.0); Mean Corpuscular Hgb Conc. 32.4 g/dL (32.0-36.0); Mean Corpuscular Volume 88.8 fL (80.0-100.0); Monocytes # (auto) 0.6 10 ^3/uL (0-1.3); Monocytes % (auto) 8.4 % (0.0-12.0); Neutrophils # (auto) 5.4 10 ^3/uL (1.6-8.6); Neutrophils % (auto) 72.4 % (37.0-80.0); Nucleated Red Blood Cells % 0.1 %; Red Blood Cells 4.22 10^6/uL (4.0-5.20); Red Cell Distribution Width 15.8 % (11.8-14.3); White Blood Cell 7.4 10^3/uL (4.4-10.8)
[2021-08-10 20:41] LABS: Calcium 8.6 mg/dL (8.5-10.1); Potassium 3.2 mmol/L (3.5-5.1)
[2021-08-10 22:00] VITALS: BP 110/68
[2021-08-11 05:00] VITALS: BP 157/97
[2021-08-11 09:00] VITALS: BP 177/80
[2021-08-11] MEDS: FUROSEMIDE 40 MG/4 ML VIAL IV SCH (09:57)
[2021-08-11] MEDS: APIXABAN 5 MG TAB PO SCH (09:57)
[2021-08-11] MEDS: amLODIPine BESYLATE 5 MG TAB PO SCH (09:57)
[2021-08-11] MEDS: ATENOLOL 50 MG TAB PO SCH (09:58)
[2021-08-11] MEDS: LISINOPRIL 20 MG TAB PO SCH (09:58)
[2021-08-11] MEDS: CLOTRIMAZOLE 1 % CREAM 15GM TOP SCH (09:59)
[2021-08-11] MEDS: HYDROcodone-ACET 5/325MG TAB PO PRN ×2 (11:07→18:44)
[2021-08-11 15:05] VITALS: BP 130/80
[2021-08-11] MEDS ORDERED: MUPIROCIN 2% OINT 15gm or 22gm TOP SCH (16:00)
[2021-08-11 18:03] VITALS: BP 177/80
== END 2021-08-11 19:30 | disposition home health service (06) | DRG 603 ==
LOC: ER 07:17 → TELE 15:49 → TELE-WESTW 17:26
PROVIDERS: ADMIT Internal Medicine; ATTEND Internal Medicine
DX: L03.115 Cellulitis of right lower limb (principal); Z68.41 Body mass index [BMI] 40.0-44.9, adult; N17.9 Acute kidney failure, unspecified; I87.2 Venous insufficiency (chronic) (peripheral); E87.6 Hypokalemia; E11.65 Type 2 diabetes mellitus with hyperglycemia; E88.09 Other disorders of plasma-protein metabolism, not elsewhere classified; E55.9 Vitamin D deficiency, unspecified; E66.01 Morbid (severe) obesity due to excess calories; I10 Essential (primary) hypertension; I25.10 Atherosclerotic heart disease of native coronary artery without angina pectoris; Z20.822 Contact with and (suspected) exposure to COVID-19; R32 Unspecified urinary incontinence; Z88.8 Allergy status to other drugs, medicaments and biological substances; Z88.2 Allergy status to sulfonamides; Z88.0 Allergy status to penicillin; Z79.01 Long term (current) use of anticoagulants; Z79.899 Other long term (current) drug therapy; Z82.3 Family history of stroke; Z82.49 Family history of ischemic heart disease and other diseases of the circulatory system; Z86.718 Personal history of other venous thrombosis and embolism; Z79.4 Long term (current) use of insulin
CPT/HCPCS: 36415; 51702; 71045; 74176; 80048; 80053; 81001; 82962; 83605; 84132; 85025; 87040; 87426; 93970; 96365; 97110; 97163; G0378; J0696; J2405; J3490

== ENCOUNTER 2021-08-20 03:23 | Emergency (ER) | payer OTHER, MEDICAID ==
[~2021-08-20] VITALS: Ht 157.5 cm; Wt 102.1 kg
[~2021-08-20 03:23] MED LIST changes: +CHOL1TAB30 PO; +INSU100I49 SC; +INSU100I61; +INSUINJ37 SC; +NITR100C6 PO; +POTA1TAB61 PO
[2021-08-20 04:25] LABS: Basophils # (auto) 0.1 10 ^3/uL (0-0.2); Basophils % (auto) 0.6 % (0.0-2.0); Eosinophils # (auto) 0.4 10 ^3/uL (0-0.8); Eosinophils % (auto) 3.1 % (0.0-7.0); Hematocrit 42.6 % (36.0-46.0); Hemoglobin 14.2 g/dL (12.2-16.2); Lymphocytes # (auto) 1.1 10 ^3/uL (0.4-5.4); Lymphocytes % (auto) 8.8 % (10.0-50.0); Mean Corpuscular Hgb Conc. 33.2 g/dL (32.0-36.0); Mean Corpuscular Volume 87.4 fL (80.0-100.0); Monocytes # (auto) 1.1 10 ^3/uL (0-1.3); Monocytes % (auto) 8.6 % (0.0-12.0); Neutrophils # (auto) 9.6 10 ^3/uL (1.6-8.6); Neutrophils % (auto) 78.9 % (37.0-80.0); Potassium 3.5 mmol/L (3.5-5.1); Red Blood Cells 4.88 10^6/uL (4.0-5.20); Red Cell Distribution Width 15.5 % (11.8-14.3); White Blood Cell 12.2 10^3/uL (4.4-10.8)
[2021-08-20 04:29] LABS: BUN/Creatinine Ratio 18.5; Calcium 9.1 mg/dL (8.5-10.1)
[2021-08-20 04:34] LABS: Bilirubin, Total 0.8 mg/dL (0.2-1.0); Total Protein 7.5 g/dL (6.4-8.2)
[2021-08-20] MEDS ORDERED: ONDANSETRON HCL 4 MG/2 ML VIAL IV ONE (04:45)
[2021-08-20] MEDS ORDERED: HYDROmorphone HCL 2 MG/ML VL IV ONE (04:45)
[2021-08-20] MEDS ORDERED: MORPHINE SULFATE 4 MG/ML SYR/VIAL IV ONE (05:00)
[2021-08-20 07:43] VITALS: BP 130/71
== END 2021-08-20 08:49 | disposition home or self-care (01) ==
LOC: ER 03:23 → EDBD 03:23 → ER 08:48
DX: R55 Syncope and collapse (principal); L03.115 Cellulitis of right lower limb; R60.0 Localized edema; E11.9 Type 2 diabetes mellitus without complications; I10 Essential (primary) hypertension; Z88.0 Allergy status to penicillin; Z88.1 Allergy status to other antibiotic agents; Z88.6 Allergy status to analgesic agent; Z90.49 Acquired absence of other specified parts of digestive tract
CPT/HCPCS: 36415; 70450; 71250; 72125; 73562; 74176; 80053; 84484; 85025; 93005; 96374; 96375; 99285; J1170; J2270; J2405

== ENCOUNTER 2021-09-28 01:27 | Emergency (ER) | payer OTHER, MEDICAID ==
[~2021-09-28] VITALS: Ht 157.5 cm; Wt 127.0 kg
[~2021-09-28 01:27] MED LIST changes: -AMLO-489 PO; -ERGO1CAP12 PO; -FLUT50SP NAS; -FURO40TA4 PO; -HYDR-4798; -INSU100I61; -LISI-716 PO; -NITR100C6 PO; -POTA1TAB61 PO
[2021-09-28 02:45] LABS: Basophils # (auto) 0.1 10 ^3/uL (0-0.2); Basophils % (auto) 0.8 % (0.0-2.0); Eosinophils # (auto) 0.1 10 ^3/uL (0-0.8); Eosinophils % (auto) 0.8 % (0.0-7.0); Hemoglobin 13.3 g/dL (12.2-16.2); Lymphocytes # (auto) 1.4 10 ^3/uL (0.4-5.4); Lymphocytes % (auto) 15.3 % (10.0-50.0); Mean Corpuscular Hemoglobin 29.3 pg (28.0-32.0); Mean Corpuscular Hgb Conc. 33.1 g/dL (32.0-36.0); Mean Corpuscular Volume 88.3 fL (80.0-100.0); Monocytes # (auto) 0.9 10 ^3/uL (0-1.3); Monocytes % (auto) 9.4 % (0.0-12.0); Neutrophils # (auto) 6.9 10 ^3/uL (1.6-8.6); Neutrophils % (auto) 73.7 % (37.0-80.0); Red Blood Cells 4.53 10^6/uL (4.0-5.20); Red Cell Distribution Width 14.9 % (11.8-14.3); White Blood Cell 9.3 10^3/uL (4.4-10.8)
[2021-09-28 02:51] LABS: Albumin 3.2 g/dL (3.4-5.0); BUN/Creatinine Ratio 15.2; Calcium 9.1 mg/dL (8.5-10.1); Potassium 3.5 mmol/L (3.5-5.1)
[2021-09-28 02:54] LABS: Bilirubin, Total 0.5 mg/dL (0.2-1.0); Total Protein 7.2 g/dL (6.4-8.2)
[2021-09-28] MEDS ORDERED: CEPH-509 PO (07:49)
[2021-09-28] MEDS ORDERED: cloNIDine HCL 0.1 MG TAB PO ONE (08:00)
[2021-09-28] MEDS ORDERED: FUROSEMIDE 20 MG/2 ML VIAL IV ONE (08:00)
[2021-09-28 10:11] VITALS: BP 156/82
== END 2021-09-28 10:24 | disposition home or self-care (01) ==
LOC: EDBD 01:27 → ER 01:27
DX: I11.0 Hypertensive heart disease with heart failure (principal); I50.9 Heart failure, unspecified; L03.115 Cellulitis of right lower limb; L03.116 Cellulitis of left lower limb; E46 Unspecified protein-calorie malnutrition; E11.9 Type 2 diabetes mellitus without complications; Z68.43 Body mass index [BMI] 50.0-59.9, adult; Z90.49 Acquired absence of other specified parts of digestive tract
CPT/HCPCS: 36415; 71045; 80053; 83880; 84484; 85025; 93005

== ENCOUNTER 2022-01-22 19:04 | Emergency (ER) | payer OTHER, MEDICAID ==
[~2022-01-22] VITALS: Ht 160 cm; Wt 90.0 kg
[~2022-01-22 19:04] MED LIST changes: +CEPH-509 PO
[2022-01-22 20:42] LABS: Basophils # (auto) 0.1 10 ^3/uL (0-0.2); Eosinophils # (auto) 0.1 10 ^3/uL (0-0.8); Eosinophils % (auto) 0.8 % (0.0-7.0); Lymphocytes # (auto) 1.4 10 ^3/uL (0.4-5.4); White Blood Cell 11.5 10^3/uL (4.4-10.8)
[2022-01-22 20:43] LABS: Basophils % (auto) 0.8 % (0.0-2.0); Hematocrit 43.5 % (36.0-46.0); Hemoglobin 13.7 g/dL (12.2-16.2); Lymphocytes % (auto) 12.1 % (10.0-50.0); Mean Corpuscular Hgb Conc. 31.5 g/dL (32.0-36.0); Mean Corpuscular Volume 85.7 fL (80.0-100.0); Monocytes % (auto) 8.4 % (0.0-12.0); Neutrophils # (auto) 8.9 10 ^3/uL (1.6-8.6); Neutrophils % (auto) 77.9 % (37.0-80.0); Nucleated Red Blood Cells % 0.1 %; Red Blood Cells 5.08 10^6/uL (4.0-5.20); Red Cell Distribution Width 15.4 % (11.8-14.3)
[2022-01-22 21:18] LABS: Albumin 3.1 g/dL (3.4-5.0); Calcium 9.1 mg/dL (8.5-10.1); Potassium 3.5 mmol/L (3.5-5.1)
[2022-01-22 21:21] LABS: BUN/Creatinine Ratio 10.6; Bilirubin, Total 0.9 mg/dL (0.2-1.0); Total Protein 7.5 g/dL (6.4-8.2)
[2022-01-22 22:43] LABS: Urine Bacteria FEW /hpf (None Seen); Urine Blood TRACE /uL (Negative); Urine Specific Gravity 1.005 (1.001-1.035); Urine WBC 23 /hpf (0 - 5)
[2022-01-22] MEDS ORDERED: ONDANSETRON HCL 4 MG/2 ML VIAL IV ONE (23:30)
[2022-01-22] MEDS ORDERED: HYDROmorphone HCL 2 MG/ML VL/or syr IV ONE (23:30)
[2022-01-23] MEDS ORDERED: cefTRIAXone 1GM/50ML D5W 50 ML IV ONE (03:45)
[2022-01-23] MEDS ORDERED: NITR-87 PO (04:29)
[2022-01-23] MEDS ORDERED: NITROFURANTOIN 100 mg CAP PO ONE (04:30)
[2022-01-23 07:28] VITALS: BP 108/65
== END 2022-01-23 07:43 | disposition home or self-care (01) ==
LOC: EDBD 19:04 → ER 19:04
DX: N39.0 Urinary tract infection, site not specified (principal); R60.0 Localized edema; I10 Essential (primary) hypertension; I48.91 Unspecified atrial fibrillation; E11.9 Type 2 diabetes mellitus without complications; Z90.49 Acquired absence of other specified parts of digestive tract; Z95.1 Presence of aortocoronary bypass graft; Z79.4 Long term (current) use of insulin; Z79.899 Other long term (current) drug therapy; Z88.6 Allergy status to analgesic agent; Z88.0 Allergy status to penicillin; Z88.2 Allergy status to sulfonamides; Z88.8 Allergy status to other drugs, medicaments and biological substances; Z88.1 Allergy status to other antibiotic agents
CPT/HCPCS: 36415; 71045; 80053; 81001; 83880; 84484; 85025; 93005; 96374; 96375; 99285; J1170; J2405

== ENCOUNTER 2022-03-26 22:33 | Emergency (ER) | payer OTHER, MEDICAID ==
[~2022-03-26] VITALS: Ht 167.6 cm; Wt 110.0 kg
[~2022-03-26 22:33] MED LIST changes: +NITR-87 PO
[2022-03-26 23:44] LABS: Basophils # (auto) 0 10 ^3/uL (0-0.2); Basophils % (auto) 0.4 % (0.0-2.0); Eosinophils # (auto) 0.2 10 ^3/uL (0-0.8); Eosinophils % (auto) 1.6 % (0.0-7.0); Hematocrit 38.2 % (36.0-46.0); Hemoglobin 12.6 g/dL (12.2-16.2); Lymphocytes # (auto) 1.5 10 ^3/uL (0.4-5.4); Lymphocytes % (auto) 15.4 % (10.0-50.0); Mean Corpuscular Hemoglobin 27.1 pg (28.0-32.0); Mean Corpuscular Volume 82.3 fL (80.0-100.0); Monocytes # (auto) 0.9 10 ^3/uL (0-1.3); Monocytes % (auto) 9.3 % (0.0-12.0); Neutrophils # (auto) 7.2 10 ^3/uL (1.6-8.6); Neutrophils % (auto) 73.3 % (37.0-80.0); Nucleated Red Blood Cells % 0.1 %; Red Blood Cells 4.64 10^6/uL (4.0-5.20); Red Cell Distribution Width 16.3 % (11.8-14.3); White Blood Cell 9.8 10^3/uL (4.4-10.8)
[2022-03-27 00:05] LABS: Albumin 2.7 g/dL (3.4-5.0); BUN/Creatinine Ratio 13.1; Calcium 7.8 mg/dL (8.5-10.1); Potassium 3.4 mmol/L (3.5-5.1)
[2022-03-27 00:08] LABS: Bilirubin, Total 0.5 mg/dL (0.2-1.0); Total Protein 6.4 g/dL (6.4-8.2)
[2022-03-27 00:58] LABS: Urine Amorphous Crystal FEW /hpf (None Seen); Urine Bacteria NONE SEEN /hpf (None Seen); Urine Blood 1+ /uL (Negative); Urine Specific Gravity 1.013 (1.001-1.035); Urine WBC 921 /hpf (0 - 5); Urine WBC Clumps PRESENT /hpf (None Seen)
[2022-03-27 12:39] VITALS: BP 153/70
== END 2022-03-27 12:39 | disposition home or self-care (01) ==
LOC: EDBD 22:33 → ER 22:35
DX: N39.0 Urinary tract infection, site not specified (principal); E11.9 Type 2 diabetes mellitus without complications; M19.90 Unspecified osteoarthritis, unspecified site; I10 Essential (primary) hypertension; I48.91 Unspecified atrial fibrillation; Z95.1 Presence of aortocoronary bypass graft; Z90.49 Acquired absence of other specified parts of digestive tract; Z88.2 Allergy status to sulfonamides; Z88.1 Allergy status to other antibiotic agents; Z79.4 Long term (current) use of insulin
CPT/HCPCS: 36415; 71045; 80053; 81001; 83605; 83880; 84484; 85025; 93005